=== PATIENT | female | born 1995 | race Caucasian/White ===

== ENCOUNTER → 2022-09-25 | Outpatient (CLI) | payer BC, SELFPAY ==
--- NOTE | 2022-09-25 10:49 | US_ITS ---
STUDY: ULTRASOUND TRANSVAGINAL CLINICAL: Female, 27 years old. Heavy painful periods TECHNIQUE: Transvaginal COMPARISON: None. FINDINGS: Normal uterine size measuring 8.4 cm in maximal craniocaudal dimension. There are no myometrial masses. Normal endometrial thickness measuring 14 mm. There are no endometrial masses, and there is no fluid in the endometrial cavity. Normal uterine cervix. Normal right ovary, measuring 3.0 x 3.2 x 2.1 cm. There are multiple follicles without a dominant cyst.There is a 0.9 x 1.1 x 0.8 cm right paraovarian cyst. Normal left ovary, measuring 1.7 x 2.9 x 2.0 cm. There are multiple follicles without a dominant cyst. There is no free fluid in the pelvis. No sonographic evidence of polycystic ovaries. US/Transvaginal Non- IMPRESSION: No suspicious sonographic findings, physiologic ovarian cysts, no sonographic evidence of PCOS Electronically Signed: Mark Argueta MD at 11:35 EDT ,
== END | disposition home or self-care (01) ==
PROVIDERS: PCP Nurse Practitioner Family; Visit Provider Nurse Practitioner Women's Health
DX: E28.2 Polycystic ovarian syndrome (principal)
CPT/HCPCS: 76830

== ENCOUNTER → 2024-06-23 | Outpatient (CLI) | payer OTHER, SELFPAY ==
[2024-06-23 12:39] LABS: Absolute Lymphocyte Count 2.44 X10^3/uL (0.83-4.51); Absolute Neutrophil Count 8.1 X10^3/uL (2.0-7.7); Basophil# 0.06 X10^3/uL; Basophil% 0.5 % (0-1); Eosinophil# 0.05 X10^3/uL; Eosinophils% 0.4 % (0-5); Hematocrit 29.4 % (37-47); Hemoglobin 8.2 g/dL (12.0-15.0); Lymphocyte # 2.44 X10^3/ul (0.83-4.51); Lymphocyte % 21.3 % (19-41); Mean Corp Hgb Conc 27.9 g/dL (32-36); Mean Corpuscular Hgb 19.9 pg (27.0-32.0); Mean Corpuscular Volume 71.4 fL (81-99); Mean Platelet Vol. 8.8 fl (6.2-12.0); Monocyte# 0.76 X10^3/uL; Monocyte% 6.6 % (0-10); NRBC Flagged by Analyzer 0.3 % (0-5); Neutrophil # 8.08 X10^3/uL (2.7-7.7); Neutrophil % 70.4 % (47-70); POSITIVE MORPHOLOGY YES; Platelet Count 504 K/mm3 (150-450); RBC Distribution Width CV 21.1 % (11.6-14.6); RBC Distribution Width SD 48.6 fl (35.1-43.9); Red Blood Count 4.12 M/mm3 (4.2-5.4); White Blood Count 11.5 K/mm3 (4.4-11.0)
[2024-06-23 12:45] LABS: Differential Indicated SCAN CRITERIA MET
[2024-06-23 13:25] LABS: Anisocytosis 1+
== END | disposition home or self-care (01) ==
LOC: VSLAB 12:00
PROVIDERS: PCP Nurse Practitioner Family
DX: D50.9 Iron deficiency anemia, unspecified (principal)
CPT/HCPCS: 36415; 85025